=== PATIENT | female | born 1985 | race Two or more races ===

== ENCOUNTER 2016-12-20 15:10 | Emergency (ER) | payer OTHER ==
[~2016-12-20] VITALS: Ht 160 cm; Wt 63.0 kg
[2016-12-20 15:25] VITALS: BP 147/80
== END 2016-12-20 19:22 | disposition home or self-care (01) ==
LOC: ED 19:00
DX: O20.0 Threatened abortion (principal)
CPT/HCPCS: 36415; 76801; 84702; 85025; 86901; 99285

== ENCOUNTER → 2017-01-07 | Outpatient (CLI) | payer OTHER ==
[2017-01-09 10:53] LABS: HIV 1&2 ANTIBODY SCREEN Nonreactive (Nonreactive); HIV-1 p24 ANTIGEN Nonreactive (Nonreactive)
== END | disposition home or self-care (01) ==
LOC: LAB 09:00
PROVIDERS: ATTEND Advanced Practice Midwife
DX: Z34.81 Encounter for supervision of other normal pregnancy, first trimester (principal); Z3A.00 Weeks of gestation of pregnancy not specified
CPT/HCPCS: 36415; 85025; 86592; 86703; 86762; 86787; 86850; 86900; 87340; 87899; G0435